=== PATIENT | female | born 1950 | race Caucasian/White ===

== ENCOUNTER 2017-08-27 11:31 | Emergency (ER) | payer MEDICARE ==
[~2017-08-27] VITALS: Ht 160 cm; Wt 53.5 kg
[2017-08-27] MEDS ORDERED: AUGMENTIN 875875 MG PO (14:25)
== END 2017-08-27 14:45 | disposition home or self-care (01) ==
LOC: ED 11:31
DX: S61.211A Laceration without foreign body of left index finger without damage to nail, initial encounter (principal); S61.251A Open bite of left index finger without damage to nail, initial encounter; W54.0XXA Bitten by dog, initial encounter; Y93.89 Activity, other specified; Y92.89 Other specified places as the place of occurrence of the external cause; Y99.9 Unspecified external cause status

== ENCOUNTER 2021-09-20 16:59 | Emergency (ER) | payer MEDICARE, OTHER ==
[~2021-09-20] VITALS: Ht 160 cm; Wt 54.4 kg
[~2021-09-20 16:59] MED LIST: AUGMENTIN 875875 MG PO
[2021-09-20] MEDS ORDERED: CYCLOBENZAPRINE10 MG PO (17:38)
[2021-09-20] MEDS ORDERED: PREDNISONE50 MG PO (17:38)
== END 2021-09-20 17:48 | disposition home or self-care (01) ==
LOC: ED 16:59
DX: S39.012A Strain of muscle, fascia and tendon of lower back, initial encounter (principal); Z88.1 Allergy status to other antibiotic agents; X58.XXXA Exposure to other specified factors, initial encounter; Y93.89 Activity, other specified; Y92.89 Other specified places as the place of occurrence of the external cause; Y99.8 Other external cause status